=== PATIENT | male | born 1965 | race Caucasian/White ===

== ENCOUNTER → 2017-12-12 | Outpatient (CLI) | payer MEDICARE, OTHER | END | disposition home or self-care (01) | LOC: RADMRIMAIN 14:56 | DX: Z53.9 Procedure and treatment not carried out, unspecified reason (principal) ==

== ENCOUNTER → 2018-02-15 | Outpatient (CLI) | payer OTHER ==
[2018-02-15 15:21] LABS: Basophils % (A) 1 %; Eosinophils # (A) 0.2 k/uL (0-0.7); Eosinophils % (A) 2 %; HCT 49.2 % (39.0-53.0); HGB 15.4 gm/dL (13.0-17.5); Lymphocytes # (A) 1.9 k/uL (1.0-4.8); Lymphocytes % (A) 26 %; MCH 28.2 pg (25.0-35.0); MCHC 31.3 g/dL (31.0-37.0); Monocytes # (A) 0.5 k/uL (0-1.0); Monocytes % (A) 8 %; Neutrophils # (A) 4.4 k/uL (1.3-7.7); Neutrophils % (A) 61 %; Platelet Count 205 k/uL (150-450); RBC 5.47 m/uL (4.30-5.90); RDW 14.1 % (11.5-15.5); WBC 7.3 k/uL (3.8-10.6)
[2018-02-15 15:30] LABS: Potassium 4.4 mmol/L (3.5-5.1)
== END | disposition home or self-care (01) ==
LOC: LABPAT 14:52
PROVIDERS: ATTEND Orthopaedic Surgery
DX: Z01.812 Encounter for preprocedural laboratory examination (principal); G56.01 Carpal tunnel syndrome, right upper limb
CPT/HCPCS: 36415; 80051; 85025

== ENCOUNTER 2018-03-02 09:55 | Day surgery (SDC) | payer OTHER ==
[2018-02-24 15:36] VITALS: BMI 41.1
--- NOTE | 2018-03-01 17:53 | HP ---
HISTORY AND PHYSICAL Surgery is 03/02/2018. Dar Griggs is a 52-year-old patient seen with symptomatic right carpal tunnel syndrome. Treatment options were discussed. He elected to proceed with decompression right median nerve. Consent regarding procedure obtained. PAST MEDICAL HISTORY: Depression, low back pain. PAST SURGICAL HISTORY: Herniorrhaphy. DAILY MEDICATIONS: Advil, Lyrica, Tylenol. SOCIAL HISTORY: Patient denies tobacco use. PHYSICAL EXAMINATION: Physical evaluation of the right hand: There is a positive carpal compression, carpal Tinel's which cause increasing numbness and tingling without the median nerve distribution. He has significant decreased sensation throughout the median nerve distribution. He has no tenderness along the A1 kellen site. There is no triggering of the digits. There is good perfusion distally. There is a good radial pulse present. An EMG revealed bilateral carpal tunnel syndrome with denervation. IMPRESSION: Right carpal tunnel syndrome. PLAN: Decompression right median nerve. MMODL / IJN: [id number] /
[~2018-03-02 09:55] MED LIST: DEXAMETHASONE SOD PHOSPHATE 10 MG/ML 1 ML VIAL IV ONE; LACTATED RINGERS 1,000 ML IV SCH; LIDOCAINE 1% 20 ML VIAL (10MG/ML) FOR IV START INTRADERMA PRN; MIDAZOLAM 2 MG/2 ML VIAL IV PRN; ONDANSETRON 4 MG/2 ML VIAL IVP ONE; fentaNYL (PF) 50 MCG/ML 2 ML AMP IV PRN
[2018-03-02 12:01] VITALS: RESP 16; TEMP 98.4
[2018-03-02] MEDS ORDERED: LIDOCAINE 1% INJ 10MG/ML (20 ML MDV) ONE (12:47)
[2018-03-02] MEDS ORDERED: MIDAZOLAM 2 MG/2 ML VIAL ONE (12:47)
[2018-03-02] MEDS ORDERED: KETAMINE 10 MG/ML 20 ML VIAL ONE (12:47)
[2018-03-02] MEDS ORDERED: fentaNYL (PF) 50 MCG/ML 2 ML AMP ONE (12:47)
[2018-03-02] MEDS ORDERED: PROPOFOL 10 MG/ML 20 ML VIAL IV ONE (12:47)
[2018-03-02] MEDS ORDERED: ROPIVACAINE 5 MG/ML 30 ML VIAL MISCELLANE ONE ×2 (13:03→13:14)
--- NOTE | 2018-03-02 13:24 | P.OP ---
Date of Procedure: 03/02/18 Preoperative Diagnosis: Right carpal tunnel syndrome Postoperative Diagnosis: Right carpal tunnel syndrome Procedure(s) Performed: Decompression right median nerve Anesthesia: MAC, local Surgeon: Lv Esparza Estimated Blood Loss (ml): 0 Pathology: none sent Condition: stable Disposition: PACU Indications for Procedure: 52-year-old patient seen with symptomatic right carpal tunnel syndrome. After having treatment options discussed, he elected to proceed with decompression right median nerve. Consent regarding the procedure was obtained. Operative Findings: see description of procedure Description of Procedure: The patient was taken to the operative suite. The patient received preoperative IV antibiotics. A well-padded tourniquet was placed proximal right upper extremity. The right upper extremity was prepped and draped in the normal sterile orthopedic fashion. The proposed incision site was infiltrated with 10 mL half percent plain Marcaine. When sufficient local analgesia was noted the extremity was elevated and tourniquet insufflated to 250. An incision was made beginning at the distal volar wrist crease extending distally approximately 3 cm in line with the fourth metacarpal. Dissection was taken down through the subcu soft tissues down through the palmar fascia to the transverse carpal ligament. I now incised the transverse carpal ligament. I completed the release proximally and distally with blunt Metzenbaums. There was good decompression of the median nerve. There was good hemostasis. The wound was irrigated. The skin margins were approximated with nylon suture. Sterile dressings were applied. The tourniquet was released with immediate capillary refill of the entire hand and all digits noted. Sterile webril and Nicolas bandage were applied. The patient was now awakened, transferred to recovery stable condition having tolerated the procedure well.
[2018-03-02 14:20] VITALS: BP 131/85; PULSE 76
== END 2018-03-02 14:15 | disposition home or self-care (01) ==
LOC: OR 09:55
PROVIDERS: ATTEND Orthopaedic Surgery
DX: G56.01 Carpal tunnel syndrome, right upper limb (principal); F32.9 Major depressive disorder, single episode, unspecified; G47.33 Obstructive sleep apnea (adult) (pediatric); E66.01 Morbid (severe) obesity due to excess calories; Z68.41 Body mass index [BMI] 40.0-44.9, adult; Z79.1 Long term (current) use of non-steroidal anti-inflammatories (NSAID); Z79.899 Other long term (current) drug therapy
CPT/HCPCS: 64721; J2250; J1100; J0690; J2405; J2001; J3010; J2795; J2704

== ENCOUNTER → 2018-04-19 | Outpatient (CLI) | payer OTHER ==
--- NOTE | 2018-04-19 15:43 | CT ---
EXAMINATION TYPE: CT abdomen pelvis wo con DATE OF EXAM: 04/19/2018 HISTORY: Recurrent Ventral hernia without obstruction per order. Umbilical pain for 3 months per [address]ick ent. CT DLP: 2235.4 mGycm. Automated Exposure Control for Dose Reduction was Utilized. TECHNIQUE: CT scan of the abdomen and pelvis is performed without oral or IV contrast. COMPARISON: NONE FINDINGS: Within the limitations of a non-contrast study, the following observations are made. LUNG BASES: No significant abnormality is appreciated. LIVER/GB: Liver is diffusely low dense consistent with fatty infiltration. Contracted gallbladder is seen. PANCREAS: No significant abnormality is seen. SPLEEN: No significant abnormality is seen. ADRENALS: No significant abnormality is seen. KIDNEYS: There is suspected single 1 mm calculus lower pole level right kidney coronal image 74. Ther e is 2 to 3 mm calculus upper pole level left kidney coronal image 82. No hydronephrosis or obstructi ng ureter calculi are clearly seen. No intraluminal calculi are seen in bladder. BOWEL: Normal-appearing appendix from cecum is seen. No suspicious small or large bowel dilatation is present. Diverticula in the left and sigmoid colon are present. No CT evidence for acute diverticuli tis. GENITAL ORGANS: No gross abnormality seen. LYMPH NODES: No greater than 1cm abdominal or pelvic lymph nodes are appreciated. OSSEOUS STRUCTURES: Spine is straightened on sagittal images there is mild to moderate multilevel spu rring. Posterior spurring effaces anterior thecal sac at L5-S1 level. There is facet arthropathy in t he lower lumbar spine. Moderate joint space loss and mild spurring in both hips is seen. OTHER: No significant additional abnormality is seen. IMPRESSION: No suspicious recurrent ventral wall hernia.
== END | disposition home or self-care (01) ==
LOC: RADCTMAIN 14:58
PROVIDERS: ATTEND Surgery Plastic and Reconstructive Surgery
DX: Z09 Encounter for follow-up examination after completed treatment for conditions other than malignant neoplasm (principal); Z87.19 Personal history of other diseases of the digestive system
CPT/HCPCS: 74176

== ENCOUNTER 2018-05-23 06:18 | Day surgery (SDC) | payer OTHER ==
[2018-05-19 11:57] VITALS: BMI 41.1
[~2018-05-23 06:18] MED LIST changes: -DEXAMETHASONE SOD PHOSPHATE 10 MG/ML 1 ML VIAL IV ONE; -LACTATED RINGERS 1,000 ML IV SCH; -LIDOCAINE 1% 20 ML VIAL (10MG/ML) FOR IV START INTRADERMA PRN; -MIDAZOLAM 2 MG/2 ML VIAL IV PRN; -ONDANSETRON 4 MG/2 ML VIAL IVP ONE; +SODIUM CHLORIDE 0.9% 500 ML 500 ML IV SCH; -fentaNYL (PF) 50 MCG/ML 2 ML AMP IV PRN
[2018-05-23 07:19] VITALS: RESP 16; TEMP 97.6
[2018-05-23] MEDS ORDERED: LACTATED RINGERS 1,000 ML IV ONE (07:26)
[2018-05-23] MEDS ORDERED: LIDOCAINE 1% 20 ML VIAL (10MG/ML) FOR IV START INTRADERMA ONE (07:26)
--- NOTE | 2018-05-23 08:07 | P.PCN ---
Date of Procedure: 05/23/18 Description of Procedure: PREOPERATIVE DIAGNOSIS: 1-Lumbar radiculopathy 2- Lumber Degenerative Disc Diseases. POSTOPERATIVE DIAGNOSIS: 1-Lumbar radiculopathy. 2-Lumbar Degenerative Disc Diseases PROCEDURE 1. Lumbar epidural steroid injection under fluoroscopic guidance at the L4-5 level in the left paramedian approach. 2. Lumbar epidurogram. ANESTHESIA: Local with 1% lidocaine; and IV moderate conscious sedation with Versed and fentanyl EBL: Minimal PROCEDURE INDICATION: The patient with low back pain and radiculitis symptoms unresponsive to conservative treatment. Fluoroscopy was used to optimize visualization of the needle placement and to maximize safety. PROCEDURE DESCRIPTION / TECHNIQUE: The patient was seen and identified in the preoperative area. Risks, benefits , complications including but not limited to infections ,bleeding ,allergic reaction to the medications ,nerve damage and not complete pain relief , and alternatives were discussed with the patient. The patient agreed to proceed with the procedure and signed the consent. IV was started, and vital signs were stable. Patient was taken to the OR and time out was completed. The patient was placed in the prone position on procedure table and a pillow was placed under the abdomen to reduce lumbar lordosis. The lumbosacral area was prepped and draped in the usual sterile fashion with ChloraPrep.Patient was closely monitored during the procedure. Conscious sedation was used during the procedure to decrease patients anxiety. Vital signs were monitered during the entire procedure. Using anterior-posterior fluoroscopy, the L4-5 interlaminar space was identified and the skin over this site was marked and then infiltrated with 1% lidocaine subcutaneously. Subsequently, a 18-gauge,6 inch Tuohy epidural needle was inserted and advanced toward the epidural space using the Loss of resistance to air technique and guided by AP and lateral fluoroscopy. The correct needle position in the epidural space was found at 8 cm from skin and verified with the injection of 1 mL of the water soluble contrast dye Omnipaque 180 contrast and observing an excellent epidurogram with the epidural spread of the dye, after negative aspiration for blood and CSF and in the absence of paresthesias. Again after negative aspiration, a 8 ml mixture containing 40 mg of Kenalog and 5 ml of preservative free Normal Saline, and 2 ml of preservative free ropivacaine 0.5% solution was injected and a washout of epidurogram was seen. Needle was withdrawn intact, skin was cleansed, and bandages were applied. patient tolerated procedure well and was transferred to PACU in stable condition. COMPLICATIONS: None
[2018-05-23] MEDS ORDERED: IV FLUID CONTINUATION 700 ML IV ONE (08:13)
[2018-05-23 08:26] VITALS: BP 131/84; PULSE 90
--- NOTE | 2018-05-23 08:27 | FL ---
Fluoroscopy INDICATION: Pain FINDINGS: Fluoroscopy time: 4 seconds. Images obtained: 2. IMPRESSIONS: 1. Documentation of fluoroscopy.
== END 2018-05-23 08:44 | disposition home or self-care (01) ==
LOC: ORPAIN 06:18
PROVIDERS: ATTEND Anesthesiology
DX: M51.36 Other intervertebral disc degeneration, lumbar region (principal); E66.01 Morbid (severe) obesity due to excess calories; Z68.41 Body mass index [BMI] 40.0-44.9, adult
CPT/HCPCS: 62323; J2250; J3301; J3010; Q9966

== ENCOUNTER 2018-06-06 14:11 | Emergency (ER) | payer OTHER ==
[2018-06-06 14:21] VITALS: RESP 18
[2018-06-06] MEDS ORDERED: ONDANSETRON 4 MG/2 ML VIAL IVP STA (14:28)
[2018-06-06] MEDS ORDERED: SODIUM CHLORIDE 0.9% 500 ML 500 ML IV STA (14:28)
[2018-06-06] MEDS ORDERED: MORPHINE SULFATE 4 MG/ML SYRINGE IV STA (14:28)
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
[2018-06-06 15:03] LABS: Basophils # (A) 0.1 k/uL (0-0.2); Basophils % (A) 1 %; Eosinophils # (A) 0.2 k/uL (0-0.7); Eosinophils % (A) 3 %; HCT 50.3 % (39.0-53.0); HGB 16.4 gm/dL (13.0-17.5); Lymphocytes # (A) 2.2 k/uL (1.0-4.8); Lymphocytes % (A) 33 %; MCH 28.9 pg (25.0-35.0); MCHC 32.7 g/dL (31.0-37.0); MCV 88.4 fL (80.0-100.0); Mean Platelet Volume 7.2; Monocytes # (A) 0.5 k/uL (0-1.0); Monocytes % (A) 8 %; Neutrophils # (A) 3.5 k/uL (1.3-7.7); Neutrophils % (A) 52 %; Platelet Count 181 k/uL (150-450); RBC 5.68 m/uL (4.30-5.90); RDW 13.7 % (11.5-15.5); WBC 6.6 k/uL (3.8-10.6)
[2018-06-06 15:12] LABS: ALT 61 U/L (21-72); AST 34 U/L (17-59); Albumin 4.1 g/dL (3.5-5.0); Alkaline Phosphatase 47 U/L (38-126); Anion Gap 9 mmol/L; Blood Urea Nitrogen 20 mg/dL (9-20); Calcium 9.6 mg/dL (8.4-10.2); Carbon Dioxide 25 mmol/L (22-30); Chloride 105 mmol/L (98-107); Glucose 133 mg/dL (74-99); Magnesium 1.9 mg/dL (1.6-2.3); Potassium 4.4 mmol/L (3.5-5.1); Sodium 139 mmol/L (137-145); Total Bilirubin 0.2 mg/dL (0.2-1.3); Total Protein 7.4 g/dL (6.3-8.2)
[2018-06-06 15:15] LABS: Appearance,Urine Clear (Clear); Bilirubin,Urine Negative (Negative); Blood,Urine Negative (Negative); Color,Urine Yellow; Glucose,Urine (UA) Negative (Negative); Ketones,Urine Negative (Negative); Leukocyte Esterase,Urine Negative (Negative); Nitrite,Urine Negative (Negative); PH, Urine 6.5 (5.0-8.0); Protein,Urine Trace (Negative); Specific Gravity,Urine 1.023 (1.001-1.035); Urobilinogen,Urine <2.0 mg/dL (<2.0)
[2018-06-06 15:17] LABS: Partial Thromboplastin Time 24.2 sec (22.0-30.0); Prothrombin Time 10.3 sec (9.0-12.0)
[2018-06-06 15:26] LABS: Creatine Kinase 131 U/L (55-170)
[2018-06-06 15:39] LABS: Creatine Kinase MB 2.1 ng/mL (0.0-2.4); Troponin I <0.012 ng/mL (0.000-0.034)
[2018-06-06] MEDS ORDERED: HYDROmorphone 1 MG/ML 1 ML SYRINGE IVP STA (15:56)
--- NOTE | 2018-06-06 16:29 | CT ---
EXAMINATION TYPE: CT angio thor/abd pel aorta DATE OF EXAM: 06/06/2018 COMPARISON: None HISTORY: Patient fell 2 weeks ago. Increasing back pain post fall. CT DLP: 1681 mGycm. Automated Exposure Control for Dose Reduction was Utilized. CONTRAST: CT scan of the thorax, abdomen and pelvis is performed with IV Contrast, patient injected with 100 mL of Isovue 370. FINDINGS: There are 3-D post processed images. The lungs are clear of infiltrate. There is no evidence of a pulmonary mass. Heart size is normal. Th ere is no pericardial effusion. There is no mediastinal adenopathy. There is normal branching pattern of the great vessels on the aortic arch. Thoracic aorta is intact without evidence of aneurysm or di ssection. There are no hilar masses. Stomach is large. Liver spleen pancreas gallbladder appear normal. Bile ducts are not dilated. There is no adrenal mass. Kidneys have normal size and contour. There is no hydronephrosis. There is no ret roperitoneal adenopathy. There are numerous diverticula in the sigmoid colon. Bladder distends smooth ly. There is no inguinal hernia. There is no free fluid in the pelvis. There is no mesenteric edema. Appendix appears normal. There are diverticula in the descending colon. There is patency of the celiac artery and superior mesenteric artery. There is patency of the renal a rteries and bilateral iliac arteries. There is bilateral patency of the femoral arteries. There is no evidence of hemodynamic stenosis. There is no evidence of abdominal aortic aneurysm or dissection. Thoracic and lumbar vertebra appear intact. There is no compression fracture. There are mild spondylo tic changes. Sternum is intact. I see no rib fracture. Bony pelvis appears intact. There is no lumbar paraspinal mass. The ribs appear intact. Shoulder joints appear intact. IMPRESSION: Negative CT angiogram of the chest abdomen pelvis. No evidence of aortic aneurysm or dissection. No f racture seen. No sign of traumatic injury. Moderate colonic diverticulosis.
[2018-06-06] MEDS ORDERED: ACET/COD 300 MG/30 MG STARTER PACK 6 TAB BTL PO STA (17:03)
[2018-06-06 17:08] VITALS: BP 108/92; PULSE 91; TEMP 98.2
== END 2018-06-06 17:08 | disposition home or self-care (01) ==
LOC: SUPCPDRO 14:11 → EC 14:11
DX: M54.6 Pain in thoracic spine (principal); M54.5 Low back pain; R06.02 Shortness of breath; Z87.39 Personal history of other diseases of the musculoskeletal system and connective tissue; Z79.899 Other long term (current) drug therapy; W19.XXXA Unspecified fall, initial encounter
CPT/HCPCS: 36415; 93005; 80053; 82550; 82553; 83735; 84484; 85025; 85610; 85730; 81003; 71275; 74174; 99284; 96374; 96375 ×2; 96361; J2270; J2405; J1170; Q9967

== ENCOUNTER → 2018-06-26 | Outpatient (CLI) | payer OTHER ==
[2018-06-26 14:35] VITALS: BP 146/99; PULSE 92; RESP 20
--- NOTE | 2018-06-27 18:42 | P.PN ---
Subjective Progress Note Date: 06/26/18 This is follow up visit for this 53 years old male with a chronic history of severe low back pain with radiating to the buttock and hip area, he is diagnosed with lumbar degenerative disc disease lumbar foraminal stenosis and lumbar spondylosis with lumbar facet arthropathy, we have done lumbar epidural steroid injections 2 patient reported that he had short-term benefit from it, he continued to have severe low back pain and also is complaining of severe mid back pain, patient denies any fever or night sweats. Denies any change in the bowel movement. Urination he denies any motor or sensory deficit, he tried different medication without any significant relief . Physical Examinations : 1-Constitutional : Cooperative , not in acute distress . 2-HEENT : nech ; supple , no Lymphadenopathy , no Thyromegaly , :eyes , no icterus, no photophobia . ENT : , normal oropharynx , no Thrush 3- Respiratory : Chest clear to auscultations Bilaterally , no wheezing . 4- Cardiovascular : regular rate and rhythem , S1 , S2 , no S3 , no S4. 5- Gastrointestinal: abdomen soft no tenderness , no organomegally . 6- Genitourinary : Defferred . 7-Integumentary : No cellulitis , no ulcers , normal skin turgor , no cyanotic . 8- neurologic : Cranial nerve II to XII intact , no focal neurological deffecit 9-psychatric : alert , oriented X 3 , appropriate affect , intact judgment and insight . 10-Lymphatic : no Lymphadenopathy. 11- musculoskeltal: Thoracic spine= multiple trigger points identified in the thoracic paravertebral muscles around T7 to T9 area bilaterally Lumber spine moter stegnth lower extremities ,thigh and legs 5/5 Right side , 5/5 Left side deep tendon reflexes : normal Knee Jerk , normal ankle Jerk positive lumber facet Loading Test Range of motion of the lumbar spine Flexion 30 degrees, extension 10 degrees strait leg raising test , positive at 30 degree Fabere test positive RT and positive LT . Sever tenderness over the Sacroiliac joint on the R and L sides Results Comments: MRI of the lumbar spine and C4 bulging disc L4-L5 with facet arthropathy and left foraminal narrowing L5-S1 facet arthropathy and bulging disc and left foraminal narrowing Assessment and Plan Plan: Assessment and plan=1-chronic severe low back pain secondary to multifactorial causes, lumbar foraminal stenosis and lumbar bulging disc disease and lumbar spondylosis with lumbar facet arthropathy. And myofascial pain syndrome thoracic area at T7 to T9 Patient continued to have severe low back pain after lumbar epidural steroid injections 2 done previously He will be good candidate to have diagnostic medial branch block lumbar area L3 to S1 and if he had good benefit then he will be good candidate to radiofrequency ablation of the medial branch lumbar area, also patient could benefit from trigger point injection in the thoracic area PQRS Measure Charge Sheet Measure #130: Documentation of Current Meds in Medical Chart: Patient's medications documented in chart Measure #226: Tobacco Use: Screen & Cessation Intervention: Pt not a tobacco user Measure #111: Pneumonia Vaccination: Pneumococcal vaccine NOT administered or previously given Measure #47: Advance Care Plan: Advance care planning discussed & documented, pt chose/unable to give Measure #412: Opioid Treatment Agreement: No documentation of signed opioid treatment agreement Measure #408: Opioid Therapy Follow-up Evaluation: Patient had NO f/u eval minimum every 3 months during opioid therapy Measure #317: Preventitive Care & Scrn High Bld Press & F/U: Pre-hypertensive or hypertensive BP documented, pt will f/u with PCP Measure #128: Body Mass Index (BMI) Screening & Follow-up: BMI documented ABOVE normal parameters - f/u documented Measure #131: Pain Assessment & Follow-up: Pain positive & plan documented, Follow-up scheduled Measure #431: Unhealthy Alcohol Use Preventative Care & Scrn: Patient not identified as an unhealthy alcohol user PQRS Narrative: Objective - Vital Signs Vital signs: Vital Signs Temp Pulse 92 06/26/18 14:23 Resp 20 06/26/18 14:23 BP 146/99 06/26/18 14:23 Pulse Ox 94 L 06/26/18 14:23 Intake & Output 06/26/18 06/27/18 06/27/18 18:59 06:59 18:59 Weight 133.81 kg
== END ==
LOC: PNWHC3 13:33
PROVIDERS: ATTEND Specialist
DX: G89.29 Other chronic pain (principal); M48.061 Spinal stenosis, lumbar region without neurogenic claudication; M51.26 Other intervertebral disc displacement, lumbar region; M47.816 Spondylosis without myelopathy or radiculopathy, lumbar region; M46.96 Unspecified inflammatory spondylopathy, lumbar region; M79.18 Myalgia, other site
CPT/HCPCS: 99211

== ENCOUNTER 2018-07-10 06:01 | Day surgery (SDC) | payer OTHER ==
[2018-07-06 15:18] VITALS: BMI 40.4
[2018-07-10 06:27] VITALS: RESP 18; TEMP 98.2
[2018-07-10] MEDS ORDERED: LACTATED RINGERS 1,000 ML IV ONE (06:36)
[2018-07-10] MEDS ORDERED: LIDOCAINE 1% 20 ML VIAL (10MG/ML) FOR IV START INTRADERMA ONE (06:37)
[2018-07-10] MEDS ORDERED: IV FLUID CONTINUATION 1,000 ML IV ONE (08:44)
--- NOTE | 2018-07-10 08:45 | P.PCN ---
Date of Procedure: 07/10/18 Procedure(s) Performed: PREOPERATIVE DIAGNOSIS : 1- Lumbar spondylosis with Facet Arthropathy without myelopathy . 2- Lumber degenerative disc disease 3-myofascial pain syndrome thoracic area. POSTOPERATIVE DIAGNOSIS: 1- Lumbar spondylosis with Facet Arthropathy without myelopathy . 2- Lumber degenerative disc disease. 3-myofascial pain syndrome thoracic area. PROCEDURE: 1- Diagnostic bilateral L3 -4 , L4 -5 , and L5-S1 medial branch block under fluoroscopy. 2-trigger point injection thoracic area ,one n the right side thoracic paravertebral muscles ,and one on the left side thoracic paravertebral muscles ANESTHESIA: Local with Ropivacain 0.5 % 6 ml , moderate sedation with intravenous Versed 2 mg and Fentanyl 100 mcg. EBL: Minimal COMPLICATION: None. IV FLUIDS: 100 mL of normal saline. PROCEDURE INDICATION: Chronic low back pain secondary to Facet arthropathy unresponsive to conservative treatment. PROCEDURE DESCRIPTION: the patient was seen and identified in the preop holding area , risks and benefits and possible complications of the procedure and alternative were discussed with the patient, and the patient agreed to proceed with the procedure and signed the consent IV was started and vital signs monitored during the procedure and fluoroscopy was used to maximize the benefit and accuracy of the needle placement, and sedation was given to decrease patient anxiety, patient was taken to the procedure room and placed in prone position vital signs monitored in the back prepped with chlorhexidine X3 then under strict sterile technique using a right oblique fluoroscopy ,the junction of the transverse process and the superior articulating process of the right L3- 4 , L4- 5, and L5-S1 vertebra which corresponding to the fluoroscopy image of the eye of the Moises dog on the block side for the medial branches and subsequently , after local infiltration of skin and subcu tissuies with Ropivacaine 0.5 % , one mL at each level , then 22-gauge 5 inches long ,Quincke-type needles , 3 needle was used , each one of them placed at the junction of the base of the transverse process and the superior articular process at the appropriate level, and the needle was advanced until the periosteum contacted, needle placement confirmed with AP oblique and lateral view and after appropriate needle placement confirmed, and after negative aspiration for heme and CSF and there was no paresthesia 1-1/2 mL of Ropivacaine 0.5% mixed with 40 mg Kenalog , then half mL injected at each level after negative aspiration the needle subsequently removed and the same procedure repeated for the left side at left side at L3-4, L4- 5 and L5- S1 levels. Then after than the trigger points injection done in a sterile technique, using 25-gauge needle , 1 trigger point injected in the right side thoracic paravertebral muscles around T9 level ropivacaine 0.5% 3 ML injected after negative aspiration, and there was no paresthesia during the injection, and another trigger point on the left side thoracic paravertebral muscles around T7 level, using 25-gauge needle 3 ML of ropivacaine 0.5% injected after negative aspiration and there was no paresthesia during the injection At the end of the procedure and the needles removed and a bandage applied after the skin was cleaned the cleaning solution patient taken to recovery room in stable condition and monitors in the recovery room for 20-30 minutes and discharged home in stable condition after discharge criteria met and patient will follow up with the pain clinic in 2-4 weeks
[2018-07-10 09:01] VITALS: BP 136/80; PULSE 73
--- NOTE | 2018-07-10 11:20 | FL ---
EXAMINATION TYPE: FL guided pain mgmt statistic DATE OF EXAM: 07/10/2018 FLUOROSCOPY Fluoroscopy time of 31 seconds was used during lumbar spine pain intervention. 5 image/s document/s the procedure.
== END 2018-07-10 09:14 | disposition home or self-care (01) ==
LOC: ORPAIN 06:01
PROVIDERS: ATTEND Specialist
DX: M47.816 Spondylosis without myelopathy or radiculopathy, lumbar region (principal); G89.29 Other chronic pain; M79.18 Myalgia, other site; M51.36 Other intervertebral disc degeneration, lumbar region
CPT/HCPCS: 99152; 20552; 64493; 64494; 64495; J2250; J1030; J3010

== ENCOUNTER 2018-07-24 09:14 | Day surgery (SDC) | payer OTHER ==
[2018-07-19 16:24] VITALS: BMI 40.4
[2018-07-24 10:07] VITALS: RESP 16; TEMP 98
[2018-07-24] MEDS ORDERED: LIDOCAINE 1% 20 ML VIAL (10MG/ML) FOR IV START INTRADERMA ONE (10:07)
[2018-07-24] MEDS ORDERED: LACTATED RINGERS 1,000 ML IV ONE ×3 (10:07→11:15)
--- NOTE | 2018-07-24 11:18 | FL ---
EXAMINATION TYPE: FL guided pain mgmt statistic DATE OF EXAM: 07/24/2018 HISTORY: Pain Bilateral lumbar facet block
[2018-07-24 11:33] VITALS: BP 137/57; PULSE 87
--- NOTE | 2018-07-24 16:50 | P.PCN ---
Date of Procedure: 07/24/18 Description of Procedure: PREOPERATIVE DIAGNOSIS : 1- Lumbar spondylosis with Facet Arthropathy without myelopathy . 2- Lumber degenerative disc disease 3-myofascial pain syndrome thoracic area. POSTOPERATIVE DIAGNOSIS: 1- Lumbar spondylosis with Facet Arthropathy without myelopathy . 2- Lumber degenerative disc disease. 3-myofascial pain syndrome thoracic area. PROCEDURE: 1- Diagnostic bilateral L3 -4 , L4 -5 , and L5-S1 medial branch block under fluoroscopy. 2-trigger point injection thoracic area ,one n the right side thoracic paravertebral muscles ,and one on the left side thoracic paravertebral muscles ANESTHESIA: Local with lidocaine, and intravenous Versed 2 mg Fentanyl 100 mcg. EBL: Minimal COMPLICATION: None. IV FLUIDS: 100 mL of normal saline. PROCEDURE INDICATION: Greater than 80% relief with first set of lumbar medial branch blocks. PROCEDURE DESCRIPTION: the patient was seen and identified in the preop holding area , risks and benefits and possible complications of the procedure and alternative were discussed with the patient, and the patient agreed to proceed with the procedure and signed the consent IV was started and vital signs monitored during the procedure and fluoroscopy was used to maximize the benefit and accuracy of the needle placement, and sedation was given to decrease patient anxiety, patient was taken to the procedure room and placed in prone position vital signs monitored in the back prepped with chlorhexidine X3 then under strict sterile technique using a right oblique fluoroscopy ,the junction of the transverse process and the superior articulating process of the right L3- 4 , L4- 5, and L5-S1 vertebra which corresponding to the fluoroscopy image of the eye of the Moises dog on the block side for the medial branches and subsequently , after local infiltration of skin one mL of lidocaine 1%, then a 22-gauge 5 inches long ,Quincke-type needle , placed at the junction of the base of the transverse process and the superior articular process at the appropriate level, and the needle was advanced until the periosteum contacted, needle placement confirmed with AP oblique and lateral view and after appropriate needle placement confirmed, and after negative aspiration for heme and CSF and there was no paresthesia 1 mL of Ropivacaine 0.5% mixed with 40 mg Kenalog, the same procedure repeated for the left side at left side at L3-4, L4- 5 and L5-S1 levels. Then after than the trigger points injection done in a sterile technique, using 25-gauge needle , 1 trigger point injected in the right side thoracic paravertebral muscles around T9 level ropivacaine 0.5% 3 ML injected after negative aspiration, and there was no paresthesia during the injection, and another trigger point on the left side thoracic paravertebral muscles around T7 level, using 25-gauge needle 3 ML of ropivacaine 0.5% injected after negative aspiration and there was no paresthesia during the injection At the end of the procedure and the needles removed and a bandage applied after the skin was cleaned the cleaning solution patient taken to recovery room in stable condition and monitors in the recovery room for 20-30 minutes and discharged home in stable condition after discharge criteria met and patient will follow up with the pain clinic in 4 weeks
== END 2018-07-24 11:43 | disposition home or self-care (01) ==
LOC: ORPAIN 09:14
PROVIDERS: ATTEND Anesthesiology
DX: M47.816 Spondylosis without myelopathy or radiculopathy, lumbar region (principal); M96.1 Postlaminectomy syndrome, not elsewhere classified; M51.36 Other intervertebral disc degeneration, lumbar region
CPT/HCPCS: 20552; 64493; 64494; J2250; J3301; 20553; 99152

== ENCOUNTER → 2018-08-10 | Outpatient (CLI) | payer OTHER ==
[2018-08-10 12:58] VITALS: BP 130/81; PULSE 82; RESP 16
--- NOTE | 2018-08-10 13:50 | P.PN ---
Subjective Progress Note Date: 08/10/18 This is a 53-year-old morbidly obese gentleman with history of lower back pain more on the left side than the right side with radiation to the left hip area. The patient had a diagnostic lumbar medial branch block which gave him 100% of pain relief the first 4 hours after the injection. The patient had surgery on the right hip with hardware placement long time ago and chronic pain in the right hip area. The patient uses medical marijuana. Today, pt denies new-onset weakness, bowel/bladder incontinence, or any other signs or symptoms of cauda equina syndrome. There are no signs of acute intoxication, and no indications of medication diversion or overuse. In addition to above, 13-point review of systems is also negative for chest pain , shortness of breath, changes in vision, changes in hearing, new onset weakness , abdominal pain, diarrhea, extreme fatigue, malaise, fever, skin changes, homicidal or suicidal ideation, or bowel or bladder incontinence. Vital Signs: Reviewed in EMR Gen: AAOx3, NAD HEENT: PERRLA,hearing grossly normal Pulm: resp unlabored,CTA Heart:S1,S2, No Mur Neck: supple, trachea midline Neuro exam of the lower extremities: Decreased but symmetrical muscle strength in the lower extremities to 4 out of 5. Tenderness in the paravertebral musculature: Positive bilaterally in the lumbar area. No sacroiliac joint tenderness. Neuro: CN II-XII grossly intact, Imaging: Reviewed in EMR/chart Assessment: Lumbar spondylosis without myelopathy Morbid obesity Plan: 1. Explanation: Opioid and psychological risk scores were reviewed. Diagnoses , prognoses, and multiple treatment options including but not limited to physical therapy, interventional therapies, adjuvant medical therapies, narcotic medication therapies, and surgery were discussed with the patient and all questions were answered to the patient's satisfaction. 2. Opioid agreement: We do not prescribe opioids for this patient 3. Counseling: The patient was counseled extensively on SMOKING CESSATION, BODY MASS INDEX, EXERCISE. Specifically, the patient was instructed regarding the importance of smoking cessation, obesity, and exercise in the context of both chronic pain and overall health. 4. Procedures: Scheduled for left lumbar medial branch RFA 5. Consultations: None 6. Investigations: None 7. Medications: None 8. Disposition: Return to the above-mentioned procedure as soon as possible PQRS measures: 1-Patient's medications are documented in the chart. 2-Tobacco use is negative, counseling given 3-Patient has had a pneumococcal vaccine. 4-Advanced care planning discussed, patient unable to give 5-Opioid contract signed with the patient. 6-Pain positive, follow-up visit or procedure scheduled 7-Patient's blood pressure measured and documented within normal limits. 8-Patient's weight was measured, and body mass index ABOVE the normal limits, and counseling was done. Patient instructed to follow up with PCP. 9-Patient WAS NOT identified as an unhealthy alcohol user. Objective - Vital Signs Vital signs: Vital Signs Temp Pulse 82 08/10/18 12:48 Resp 16 08/10/18 12:48 BP 130/81 08/10/18 12:48 Pulse Ox Intake & Output 08/09/18 08/10/18 08/10/18 18:59 06:59 18:59 Weight 133.81 kg
== END | disposition home or self-care (01) ==
LOC: PNWHC3 12:35
PROVIDERS: ATTEND Anesthesiology
DX: G89.29 Other chronic pain (principal); M54.5 Low back pain; M47.816 Spondylosis without myelopathy or radiculopathy, lumbar region; E66.01 Morbid (severe) obesity due to excess calories; M25.551 Pain in right hip; F12.90 Cannabis use, unspecified, uncomplicated; Z98.890 Other specified postprocedural states; Z68.41 Body mass index [BMI] 40.0-44.9, adult
CPT/HCPCS: 99211

== ENCOUNTER 2018-08-24 06:13 | Day surgery (SDC) | payer OTHER ==
[2018-08-21 13:31] VITALS: BMI 41.1
[2018-08-24 06:50] VITALS: RESP 18; TEMP 98.5
[2018-08-24] MEDS ORDERED: LIDOCAINE 1% 20 ML VIAL (10MG/ML) FOR IV START INTRADERMA ONE (07:04)
[2018-08-24] MEDS ORDERED: LACTATED RINGERS 1,000 ML IV ONE (07:05)
--- NOTE | 2018-08-24 07:52 | P.PCN ---
Date of Procedure: 08/24/18 Surgeon: Chasidy Jacob Pathology: none sent Condition: stable Disposition: PACU Description of Procedure: PREOPERATIVE DIAGNOSIS: Lumbar spondylosis without myelopathy, morbid obesity POSTOPERATIVE DIAGNOSIS: Lumbar spondylosis without myelopathy,morbid obesity PROCEDURES : Radiofrequency thermocoagulation L3-L4, L4-L5, and L5-S1 medial branch, with fluoroscopic guidance on the left side ANESTHESIA: IV moderate conscious sedation with versed and fentanyl and local infiltration with lidocaine 1% 5 ml EBL: Minimal PROCEDURE INDICATION: The patient with low back pain secondary to lumbar facet arthropathy who had more than 50% relief of her pain with previous diagnostic lumbar medial branch block with bupivacaine. PROCEDURE DESCRIPTION / TECHNIQUE: The patient was seen and identified in the preoperative area. Risks, benefits, complications, including but not limited to risk of infection ,bleeding , allergic reactions to the medications and no complete pain relief , and alternatives were discussed with the patient, the patient agreed to proceed with the procedure and signed the consent. IV was started. Vital signs remained stable throughout the procedure. Patient was taken to the OR and time out was completed. The patient was placed in the prone position on the procedure table. The lumber area was prepped and draped in the usual sterile fashion. . Vital signs were closely monitored during the procedure .IV sedation was used during the procedure to decrease patients anxiety. The target points were identified as follows: For the L5-S1 level which corresponds to the dorsal ramus of L5 the target point was at the superior medial aspect of the sacral ala on the ---- side of the spine on the AP view of fluoroscopy and for the L3, and L4 medial branches the target points were at the connection between the transverse process and the superior articular process of L4, and L5 vertebra respectively on the left oblique view of fluoroscopy. skin was marked, and localized with 1% lidocaineat these points. Subsequently, an 18 [id number] radiofrequency needles with a 10-mm curved active tips were advanced guided by fluoroscopy to each of the target points mentioned above in a superior medial direction to get the active tips as parallel as possible to the medial branches tracks. AP, oblique, and lateral views of fluoroscopy were used to verify needle tips position. Each level then underwent motor testing at 2.5 Hz and 0 to 3 volt with local stimulation, but no radicular symptoms down the legs. Thereafter radiofrequency thermocoagulation at 80 degrees celsius for 90 seconds after injecting 1 ml of PF Marcaine 0.5%(3 mls) with 40 mg of Kenalog. At the end of the procedure, the skin was cleansed and bandages were applied. COMPLICATIONS: No acute complications. DISPOSITION / PLANS: The patient was placed in a supine position and transferred to the recovery area in a stable condition for observation and was discharged from the recovery room after meeting discharge criteria. Home discharge instructions given to the patient by the staff. The patient was reexamined prior to discharge. The patient will schedule a follow up in the clinic in 2-4 weeks.
[2018-08-24] MEDS ORDERED: IV FLUID CONTINUATION 1,000 ML IV ONE (07:58)
--- NOTE | 2018-08-24 08:12 | FL ---
EXAMINATION TYPE: FL guided pain mgmt statistic DATE OF EXAM: 08/24/2018 FLUOROSCOPY Fluoroscopy time of 14 seconds was used during left-sided lumbar radiofrequency ablation. 4 image/s document/s the procedure.
[2018-08-24 08:17] VITALS: BP 129/77; PULSE 88
== END 2018-08-24 08:29 | disposition home or self-care (01) ==
LOC: ORPAIN 06:13
PROVIDERS: ATTEND Anesthesiology
DX: M47.816 Spondylosis without myelopathy or radiculopathy, lumbar region (principal); E66.01 Morbid (severe) obesity due to excess calories; Z68.41 Body mass index [BMI] 40.0-44.9, adult; Z79.899 Other long term (current) drug therapy
CPT/HCPCS: 64635; 64636; J2250; J3301; J3010; 99152

== ENCOUNTER → 2018-09-14 | Outpatient (CLI) | payer OTHER ==
[2018-09-14 14:01] VITALS: BP 127/87; PULSE 95; RESP 16
--- NOTE | 2018-09-14 14:13 | P.PAINPG ---
Subjective Progress Note Date: 09/14/18 Dar is a 53-year-old gentleman who presents today as a follow-up. He recently had a left-sided lumbar radiofrequency ablation done on 08/24/2018. He reports that the radiofrequency ablation did not really help him on the left side. He reports that he is a little bit more pain than he was before. He is complaining of cramping in his posterior thigh and calf. He reports that his pain in the leg is not new but he feels it was gone away for a while. He reports the test injections did help for a few hours at day but not far beyond that. He reports that he is able to sleep for about 5-6 hours and wakes up with pain in his lumbar spine history is a heating pad. He uses [id number] Tylenol only as needed. Does not use any narcotic medications. He denies any bowel or bladder incontinence or any new weakness in his lower extremities. Objective - Vital Signs Vital signs: Intake & Output 09/13/18 09/14/18 09/14/18 18:59 06:59 18:59 Weight 131.542 kg - Exam General: Awake and alert oriented 3 no distress, morbidly obese Respiratory exam: No audible wheezing no accessory muscle usage Cardiovascular exam: regular rate, palpable bilateral pulses, no lower extremity edema Abdominal exam: No distention nontender to palpation Cervical spine: Normal alignment, Spurling's negative, facet loading negative Lumbar spine: Loss of lumbar lordosis, normal alignment, tender to palpation over bilateral paraspinal muscles, facet loading is positive bilaterally. Straight leg raise is negative. Sacroiliac joints: Nontender to palpation, JESUS is negative, Gaenselon negative Neuro exam: Normal sensation in bilateral upper extremities, deep tendon reflexes are 2+ bilateral upper extremities. Normal sensation in bilateral lower extremities. Deep tendon reflexes are 1+ in lower extremities Psych exam: Cooperative, appropriate mood Assessment and Plan Assessment: Lumbar spondylosis without myelopathy Morbid obesity Plan: At this point I feel that patient may benefit from an anti-inflammatory medication such as Mobic. He does not use any other anti-inflammatory medications. He denies that he is diabetic having any kidney problems or any heart problems. I did discuss the risks benefits and alternatives to using these medications and a long-term basis. This point I'll prescribe Mobic 7.5 mg 1-2 tablets per day as needed. Advise him to stay hydrated while using nonsteroidal anti-inflammatory medications. I have given her a refill on the prescription and told him that we will see him back in 8 weeks' time if he needs to see us before then should give us a call. PQRS Measure Charge Sheet Measure #130: Documentation of Current Meds in Medical Chart: Patient's medications documented in chart Measure #226: Tobacco Use: Screen & Cessation Intervention: Pt not a tobacco user Measure #111: Pneumonia Vaccination: Pneumococcal vaccine administered or previously received Measure #47: Advance Care Plan: Advance care planning discussed & documented, plan or surrogate given Measure #412: Opioid Treatment Agreement: No documentation of signed opioid treatment agreement Measure #317: Preventitive Care & Scrn High Bld Press & F/U: Normal blood pressure, f/u not required Measure #128: Body Mass Index (BMI) Screening & Follow-up: BMI documented ABOVE normal parameters - f/u documented Measure #131: Pain Assessment & Follow-up: Pain positive & plan documented Measure #431: Unhealthy Alcohol Use Preventative Care & Scrn: Patient not identified as an unhealthy alcohol user PQRS Narrative: Smoking Status Never smoker Hx Alcohol Use (MH) No Home Medications: Ambulatory Orders Ibuprofen/Diphenhydramine HCl [Advil Pm Liqui-Gels] 2 - 3 cap PO HS PRN 02/24/18 Medical Marijuana 1 inhalation INHALATION DIRECTED PRN 06/26/18 Acetaminophen [Tylenol Extra Strength] 500 mg PO TID PRN 07/19/18 traZODone HCL 50 mg PO HS 07/24/18 Ibuprofen [Advil] 800 mg PO Q8HR PRN 08/21/18 Acetaminophen/Diphenhydramine [Tylenol PM Extra Strength] 1 each PO HS PRN 09/14/18 Controlled Substance Measures - Controlled Substance Measures Is patient prescribed a controlled substance at discharge?: No
== END | disposition home or self-care (01) ==
LOC: PNWHC3 13:28
PROVIDERS: ATTEND Hospitalist
DX: M47.816 Spondylosis without myelopathy or radiculopathy, lumbar region (principal); E66.01 Morbid (severe) obesity due to excess calories; Z98.890 Other specified postprocedural states
CPT/HCPCS: 99211

== ENCOUNTER 2018-10-04 09:46 | Day surgery (SDC) | payer OTHER ==
[2018-10-02 09:47] VITALS: BMI 40.4
--- NOTE | 2018-10-03 14:34 | HP ---
HISTORY AND PHYSICAL DATE OF SERVICE: 10/04/2018 Dar Griggs is a 53-year-old patient seen with symptomatic left carpal tunnel syndrome. We discussed options. He elected to proceed with decompression. Consent regarding the procedure was obtained. PAST MEDICAL HISTORY: Depression, chronic low back pain. PAST SURGICAL HISTORY: Herniorrhaphy. DAILY MEDICATIONS: 1. Advil. 2. Ibuprofen. 3. Lyrica. ALLERGIES: None. SOCIAL HISTORY: Denies tobacco use. PHYSICAL EVALUATION OF THE LEFT HAND: He has a pars of carpal compression, positive carpal Tinel's. He has significant decreased sensation throughout the median nerve distribution. There is no tenderness of the A1 kellen sites. There is no triggering of the digits radiographs of. He has good perfusion as well as a good radial pulse present. RADIOGRAPHS: Radiographs of the left hand reveals some carpal metacarpal osteoarthritis. An EMG revealed carpal tunnel syndrome with denervation. IMPRESSION: Left carpal tunnel syndrome. PLAN: Decompression left median nerve. MMODL / IJN: [id number] /
[~2018-10-04 09:46] MED LIST changes: +DEXAMETHASONE SOD PHOSPHATE 10 MG/ML 1 ML VIAL IV ONE; +HYDROmorphone 0.5 MG/0.5 ML SYRINGE IVP PRN; +LACTATED RINGERS 1,000 ML IV SCH; +LIDOCAINE 1% 20 ML VIAL (10MG/ML) FOR IV START INTRADERMA PRN; +ONDANSETRON 4 MG/2 ML VIAL IVP ONE; +SCOPOLAMINE 1.5MG/72HR PATCH TRANSDERM ONE; -SODIUM CHLORIDE 0.9% 500 ML 500 ML IV SCH; +ceFAZolin 3 GM in SODIUM CHLORIDE 0.9% 100 ML IVPB ONE
[2018-10-04 10:29] VITALS: TEMP 98.3
[2018-10-04] MEDS ORDERED: fentaNYL (PF) 50 MCG/ML 2 ML AMP IVP ONE (11:22)
[2018-10-04] MEDS ORDERED: PROPOFOL 10 MG/ML 20 ML VIAL IV ONE (11:31)
[2018-10-04] MEDS ORDERED: fentaNYL (PF) 50 MCG/ML 2 ML AMP ONE (11:31)
[2018-10-04] MEDS ORDERED: MIDAZOLAM 2 MG/2 ML VIAL ONE (11:31)
[2018-10-04] MEDS ORDERED: BUPIVACAINE (PF) 0.25% 30 ML VIAL SQ ONE ×2 (11:44)
--- NOTE | 2018-10-04 12:09 | P.OP ---
Date of Procedure: 10/04/18 Preoperative Diagnosis: Left carpal tunnel syndrome Postoperative Diagnosis: Left carpal tunnel syndrome Procedure(s) Performed: Decompression left median nerve Anesthesia: MAC, local Surgeon: Lv Esparza Estimated Blood Loss (ml): 0 Pathology: none sent Condition: stable Disposition: PACU Indications for Procedure: 53-year-old patient seen with symptomatic left carpal tunnel syndrome. After having treatment options discussed, he elected to proceed with decompression. Operative Findings: See description of procedure Description of Procedure: The patient was taken to the operative suite. The patient received preoperative IV antibiotics. A well-padded tourniquet placed proximal left upper extremity. Left upper extremity prepped and draped in the normal sterile orthopedic fashion. IV sedation was achieved by the department of anesthesia. Once sufficient anesthesia was noted the proposed incision site was infiltrated with local analgesic1/4 percent plain Marcaine totaling 12 mL. Once good local analgesia was noted the extremity was elevated and tourniquet insufflated to 250. I made an incision beginning at the distal volar wrist crease extending distally proximal to 3 cm in line with the fourth metacarpal sharply through skin. Dissection was taken down through subcu soft tissues to the portal to the transverse carpal ligament. I incised the transverse carpal ligament. I completed the release proximally and distally with blunt Metzenbaums. There was good complete release of transverse carpal ligament and good decompression of the nerve. There was good hemostasis. Wound was irrigated. The skin margins were proximal nylon suture. Sterile dressings followed by loose web roll were applied. The tourniquet was released with immediate capillary refill noted of all digits. Sterile Coban was applied. The patient was awakened and transferred to recovery in stable condition.
[2018-10-04] MEDS ORDERED: traMADol 50 MG TAB PO ONE (12:39)
[2018-10-04 13:06] VITALS: BP 131/87; PULSE 69; RESP 16
== END 2018-10-04 13:12 | disposition home or self-care (01) ==
LOC: OR 09:46
PROVIDERS: ATTEND Orthopaedic Surgery
DX: G56.02 Carpal tunnel syndrome, left upper limb (principal); F32.9 Major depressive disorder, single episode, unspecified; G89.29 Other chronic pain; M54.5 Low back pain; Z79.1 Long term (current) use of non-steroidal anti-inflammatories (NSAID); Z79.899 Other long term (current) drug therapy; Z87.442 Personal history of urinary calculi
CPT/HCPCS: 64721; J2250; J1100; J0690; J2405; J3010; J2704

== ENCOUNTER → 2019-05-09 | Outpatient (CLI) | payer OTHER ==
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
== END | disposition home or self-care (01) ==
LOC: RADXRMAIN 07:53
PROVIDERS: ATTEND Family Medicine
DX: M25.551 Pain in right hip (principal); Z87.81 Personal history of (healed) traumatic fracture
CPT/HCPCS: 73501

== ENCOUNTER → 2021-08-19 | Outpatient (CLI) | payer OTHER ==
--- NOTE | 2021-08-20 10:22 | NM ---
EXAMINATION TYPE: NM bone scan whole body DATE OF EXAM: 08/19/2021 COMPARISON: CT 04/19/2018, 06/06/2018, report of prior CT 07/31/2021 HISTORY: Abnormal CT Delayed whole-body scanning was performed following the injection of 23.5 mCi Tc 99m MDP. Images acq uired 3.5 hours post injection. FINDINGS: The abnormal focus within the right ilium was seen on prior CT scans dating 2017. There is only mild increased increased activity at this level on bone scan. Uptake within the feet, ankles, knees, wrist s and hands, shoulders, sternoclavicular joints is likely degenerative. Uptake within the maxilla and mandible is likely due to periodontal disease. Uptake also noted within the spine which may be degen erative, activity within the approximate T10 vertebral body may be due to a chronic compression defor mity not seen on previous CT, is indeterminate, consider plain film correlation. Uptake at the xiphoi d, lower sternum is likely degenerative. Soft tissue uptake is within normal limits. IMPRESSION: There are osteoarthritic changes present. Abnormality within the right ilium appears chronic, compari son with recent CT to previous exam may be of benefit to assess for stability.
== END | disposition home or self-care (01) ==
LOC: RADNMMAIN 09:49
PROVIDERS: ATTEND Family Medicine
DX: M19.90 Unspecified osteoarthritis, unspecified site (principal); R93.7 Abnormal findings on diagnostic imaging of other parts of musculoskeletal system
CPT/HCPCS: 78306; A9503

== ENCOUNTER 2021-08-21 10:28 | Day surgery (SDC) | payer OTHER ==
[2021-08-19 12:39] VITALS: BMI 42.3
[~2021-08-21 10:28] MED LIST changes: -DEXAMETHASONE SOD PHOSPHATE 10 MG/ML 1 ML VIAL IV ONE; +DEXAMETHASONE SOD PHOSPHATE 4 MG/ML 1 ML VIAL IV ONE; -LIDOCAINE 1% 20 ML VIAL (10MG/ML) FOR IV START INTRADERMA PRN; -SCOPOLAMINE 1.5MG/72HR PATCH TRANSDERM ONE; -ceFAZolin 3 GM in SODIUM CHLORIDE 0.9% 100 ML IVPB ONE
[2021-08-21 11:15] VITALS: TEMP 98
[2021-08-21] MEDS ORDERED: ONDANSETRON 4 MG/2 ML VIAL IVP ONE (11:33)
[2021-08-21] MEDS ORDERED: DEXAMETHASONE SOD PHOSPHATE 4 MG/ML 1 ML VIAL IVP ONE (11:35)
[2021-08-21] MEDS ORDERED: KETAMINE 10 MG/ML 20 ML VIAL ONE (12:20)
[2021-08-21] MEDS ORDERED: PROPOFOL 10 MG/ML 20 ML VIAL IV ONE (12:20)
[2021-08-21] MEDS ORDERED: GLYCOPYRROLATE 0.2 MG/ML 2 ML VIAL ONE (12:20)
[2021-08-21] MEDS ORDERED: LIDOCAINE 1% INJ 10MG/ML (20 ML MDV) ONE (12:20)
--- NOTE | 2021-08-21 12:32 | P.PCN ---
Date of Procedure: 08/21/21 Procedure(s) Performed: BRIEF HISTORY: Patient is a 56-year-old, pleasant, male scheduled for an upper endoscopy as a part of evaluation of intermittent dysphagia to solids and history of gastroesophageal reflux last few months duration. PROCEDURE PERFORMED: Esophagogastroduodenoscopy With biopsy PREOPERATIVE DIAGNOSIS: GERD and intermittent dysphagia to solids. IV sedation per anesthesia. PROCEDURE: After informed consent was obtained, the patient was brought into the endoscopy unit. IV sedation was administered by Anesthesia under continuous monitoring. Initially the Olympus GIF-140 video endoscope was inserted into the mouth. Esophagus intubated without any difficulty. It was gradually advanced into the stomach and duodenum and carefully examined. The bulb and the second part of the duodenum appeared normal. The scope at this time was withdrawn to the stomach, adequately insufflated with air, and upon careful examination, mucosa of the antrum, had mild mottling of the mucosa and biopsies were done from this area. The body, cardia and the fundus appeared normal. The scope was then withdrawn into the esophagus. The GE junction was located at 43 cm from the incisors. There was patchy areas of erythema at the GE junction consistent with LA grade a reflux esophagitis. The ~esophagus appeared normal. There were no erosions or ulcerations seen and the patient tolerated the procedure well. IMPRESSION: 1. Mild antral gastritis. 2. Patchy areas of erythema at the GE junction consistent with LA grade A reflux esophagitis. RECOMMENDATIONS: The findings of this examination were discussed with the patient as well as his family.. Follow with the biopsy results. He was advised to continue with Prilosec 20 mg daily and a regular basis and follow antireflux measures.
[2021-08-21 13:01] VITALS: BP 153/91; PULSE 101; RESP 16
== END 2021-08-21 13:36 | disposition home or self-care (01) ==
LOC: ORWHC2ENDO 10:28
PROVIDERS: ATTEND Internal Medicine Gastroenterology
DX: K29.60 Other gastritis without bleeding (principal); K21.00 Gastro-esophageal reflux disease with esophagitis, without bleeding; I10 Essential (primary) hypertension; G47.33 Obstructive sleep apnea (adult) (pediatric); K21.9 Gastro-esophageal reflux disease without esophagitis; F12.90 Cannabis use, unspecified, uncomplicated
CPT/HCPCS: 43239; 88305; J1100; J2405; J2001; J2704